=== PATIENT | male | born 1995 | race Hispanic/Latino ===

== ENCOUNTER 2017-08-19 10:55 | Emergency (ER) | payer SELFPAY ==
[2017-08-19 11:57] LABS: #Eosinphils 0.1 thou/uL (0.0-0.7); #Lymphocytes 1.7 thou/uL (1.20-3.40); #Monocytes 0.3 thou/uL (0.11-0.59); #Neutrophils 2.3 thou/uL (1.40-6.50); %Eosinophils 1.2 % (0.0-10.0); %Lymphocytes 38.4 % (28.0-48.0); %Monocytes 7.7 % (0.0-4.0); Hematocrit 46.9 % (42.0-52.0); Mean Platelet Volume 8.6 fL (7.4-10.4); Red Blood Cell (RBC) Count 5.23 mill/uL (4.00-5.20); White Blood Cell (WBC) Count 4.5 thou/uL (4.8-10.8)
[2017-08-19 12:17] LABS: ALT (SGPT) 22 U/L (8-55); AST (SGOT) 18 U/L (5-34); Alkaline Phosphatase 103 U/L (Less than 750); Anion Gap 12 mmol/L (10-20); BUN (Urea Nitrogen) 10 mg/dL (8.9-20.6); Bilirubin, Total 0.6 mg/dL (0.2-1.2); Calc. Creatinine Clearance 0 mL/min (70-130); Calcium 9.2 mg/dL (7.8-10.44); Carbon Dioxide 25 mmol/L (22-29); Chloride 105 mmol/L (98-107); Estimated GFR-MDRD Greater than 90; Globulin 2.6 g/dL (2.4-3.5); Lipase 46 U/L (8-78); Protein, Total 7.1 g/dL (6.0-8.3)
[2017-08-19] MEDS ORDERED: Ondansetron HCl/PF 4 MG/2 ML Vial ONE (12:40)
--- NOTE | 2017-08-19 13:13 | RAD ---
ACUTE ABDOMINAL SERIES: Date: 08/19/17 HISTORY: Abdominal pain and intermittent vomiting for 2 months. FINDINGS: CHEST: Cardiac silhouette and pulmonary vasculature are within normal limits. Lungs are clear. Osseous struc tures are intact. 2 VIEWS ABDOMEN: No free intraperitoneal air is seen beneath the hemidiaphragms. There is a nonspecific bowel gas lucian gilda. No suspicious calcifications are seen. Osseous structures are intact. IMPRESSION: Nonspecific bowel gas pattern. POS: [facility]
== END 2017-08-19 14:33 | disposition home or self-care (01) ==
LOC: ERS 10:55
DX: R11.2 Nausea with vomiting, unspecified (principal); R19.7 Diarrhea, unspecified; F31.9 Bipolar disorder, unspecified
CPT/HCPCS: 36415; 74022; 80053; 83690; 85025; 96361; 96372; 96374; J2405

== ENCOUNTER 2017-10-03 01:31 | Emergency (ER) | payer SELFPAY ==
[2017-10-03] MEDS ORDERED: Acetaminophen 650 MG Suppository ONE (02:42)
[2017-10-03] MEDS ORDERED: Acetaminophen 325 MG TAB ONE (02:43)
== END 2017-10-03 02:48 | disposition home or self-care (01) ==
LOC: ERS 01:31
DX: J11.1 Influenza due to unidentified influenza virus with other respiratory manifestations (principal); F31.9 Bipolar disorder, unspecified
CPT/HCPCS: 87804; 99283

== ENCOUNTER 2022-07-03 16:01 | Inpatient (IN) | payer SELFPAY ==
[2022-07-03 16:39] LABS: #Basophils 0.1 thou/uL (0.0-0.2); #Eosinphils 0.1 thou/uL (0.0-0.7); #Lymphocytes 2.1 thou/uL (1.20-3.40); #Monocytes 0.3 thou/uL (0.11-0.59); #Neutrophils 2.1 thou/uL (1.40-6.50); %Basophils 1.3 % (0.0-1.0); %Eosinophils 1.2 % (0.0-10.0); %Lymphocytes 46.3 % (21.0-51.0); %Monocytes 5.5 % (0.0-10.0); %Neutrophils 45.6 % (42.0-75.0); Hemoglobin 15.1 g/dL (14.0-18.0); Mean Corpuscular HGB CONC 33.5 g/dL (32.0-36.0); Mean Corpuscular Hemoglobin 30.5 pg (27.0-31.0); Mean Corpuscular Volume 91.1 fL (78.0-98.0); Mean Platelet Volume 9.2 fL (7.4-10.4); Platelet Count 194 thou/uL (130-400); RBC Distribution Width 12.3 % (11.5-14.5); Red Blood Cell (RBC) Count 4.94 mill/uL (4.70-6.10); White Blood Cell (WBC) Count 4.6 thou/uL (4.8-10.8)
[2022-07-03 16:48] LABS: Actual Bicarbonate (HCO3v) 22 mEq/L (22-28); Analyzer IN Cardio ER; Chloride (VBG) 104 mmol/L (98-106); Hemoglobin (Hb) 15.8 g/dL (13.2-17.3); Potassium (VBG) 3.88 mmol/L (3.70-5.30); Sodium 136.3 mmol/L (133-146); pH (venous) 7.37 (7.32-7.43)
[2022-07-03 17:05] LABS: Lactic Acid 1.9 mmol/L (0.5-2.2)
[2022-07-03 17:10] LABS: ALT (SGPT) 23 U/L (8-55); AST (SGOT) 27 U/L (5-34); Acetaminophen Less than 10.0 mcg/mL (10.0-30.0); Albumin 4.1 g/dL (3.5-5.0); Alcohol 127 mg/dL (Less than 10); Alkaline Phosphatase 87 U/L (40-110); Anion Gap 12 mmol/L (10-20); BUN (Urea Nitrogen) 6 mg/dL (8.9-20.6); Bilirubin, Total 0.5 mg/dL (0.2-1.2); Calc. Creatinine Clearance 0 mL/min (70-130); Calcium 8.5 mg/dL (7.8-10.44); Carbon Dioxide 23 mmol/L (22-29); Chloride 106 mmol/L (98-107); Estimated GFR 129; Globulin 2.2 g/dL (2.4-3.5); Glucose 109 mg/dL (70-105); Potassium 3.9 mmol/L (3.5-5.1); Protein, Total 6.3 g/dL (6.0-8.3); Salicylate Less than 8.0 mg/dL (15.0-30.0); Sodium 137 mmol/L (136-145)
[2022-07-03 17:26] LABS: Bacteria/HPF None Seen HPF (None Seen); Bilirubin Negative (Negative); Blood, Urine Negative (Negative); Clarity Clear (Clear); Glucose, Urine (Dipstick) Normal (Negative); Ketone, Urine Negative (Negative); Leukocyte Negative Leu/uL (Negative); Nitrite Negative (Negative); Protein, Urine (Dipstick) Negative (Neg-Trace); RBC/HPF None Seen HPF (0-3); Specific Gravity, Urine 1.004 (1.002-1.036); Squamous Epithelial None Seen HPF (0-3); Urobilinogen Normal mg/dL (Less than 2); WBC/HPF None Seen HPF (0-3); pH, Urine 5.5 (5.0-9.0)
[2022-07-03 17:35] LABS: Amphetamine Not Detected (NotDetected); Barbiturates Screen Not Detected (NotDetected); Benzodiazepine Screen Detected (NotDetected); Cocaine Metabolite Screen Not Detected (NotDetected); Methadone Not Detected (NotDetected); Methamphetamine Not Detected (NotDetected); Opiate Screen Not Detected (NotDetected); Oxycodone Screen Not Detected (NotDetected); Phencyclidine (PCP) Not Detected (NotDetected); THC/Cannabinoid Screen Detected (NotDetected); Tricyclic Screen Not Detected (NotDetected)
[2022-07-03] MEDS ORDERED: Naloxone HCl 0.4 mg/ml Vial ONE (18:07)
[2022-07-03] MEDS ORDERED: NOREPINEPHRINE 8 MG/250 ML-D5W 250 ML ONE (19:10)
[2022-07-03 20:23] LABS: SARS-CoV-2 NAA Rapid Test Not Detected (NotDetected)
[2022-07-03] MEDS ORDERED: Acetaminophen 325 MG TAB PO PRN (20:25)
[2022-07-03] MEDS ORDERED: Multivitamins, Adult 10 ML, Folic Acid 1 MG, Thiamine HCl 100 MG in Dextrose 5 %-0.45 %... IV SCH (20:30)
[2022-07-03] MEDS ORDERED: NOREPINEPHRINE 8 MG/250 ML-D5W 250 ML IVPB SCH (21:00)
[2022-07-03] MEDS: Sodium Chloride 0.9% 1,000 ML IV SCH (21:46)
[2022-07-03] MEDS: Famotidine 20 MG TAB PO SCH (21:58)
[2022-07-03] MEDS ORDERED: Sterile Water 10 ML VIAL FS PRN (23:45)
[2022-07-03] MEDS ORDERED: Ziprasidone 20 MG VIAL IM SCH (23:59)
[2022-07-04 05:03] VITALS: BMI 22.8
[2022-07-04] MEDS: Sodium Chloride 0.9% 1,000 ML IV SCH ×5 (05:59→21:04)
[2022-07-04 08:07] LABS: #Eosinphils 0.1 thou/uL (0.0-0.7); #Monocytes 0.5 thou/uL (0.11-0.59); #Neutrophils 2.7 thou/uL (1.40-6.50); %Basophils 0.6 % (0.0-1.0); %Eosinophils 2.7 % (0.0-10.0); %Lymphocytes 37.2 % (21.0-51.0); %Monocytes 8.5 % (0.0-10.0); %Neutrophils 51.1 % (42.0-75.0); Hemoglobin 14.1 g/dL (14.0-18.0); Mean Corpuscular HGB CONC 32.9 g/dL (32.0-36.0); Mean Corpuscular Hemoglobin 30.7 pg (27.0-31.0); Mean Corpuscular Volume 93.1 fL (78.0-98.0); Platelet Count 168 thou/uL (130-400); RBC Distribution Width 12.1 % (11.5-14.5); Red Blood Cell (RBC) Count 4.61 mill/uL (4.70-6.10); White Blood Cell (WBC) Count 5.3 thou/uL (4.8-10.8)
[2022-07-04 08:21] LABS: ALT (SGPT) 17 U/L (8-55); AST (SGOT) 17 U/L (5-34); Albumin 3.3 g/dL (3.5-5.0); Alkaline Phosphatase 69 U/L (40-110); Anion Gap 7 mmol/L (10-20); BUN (Urea Nitrogen) 4 mg/dL (8.9-20.6); Bilirubin, Total 0.6 mg/dL (0.2-1.2); Calc. Creatinine Clearance 146 mL/min (70-130); Carbon Dioxide 26 mmol/L (22-29); Chloride 113 mmol/L (98-107); Estimated GFR 131; Globulin 1.7 g/dL (2.4-3.5); Glucose 101 mg/dL (70-105); Magnesium 1.8 mg/dL (1.6-2.6); Potassium 4.1 mmol/L (3.5-5.1); Sodium 142 mmol/L (136-145)
[2022-07-04] MEDS ORDERED: FLU VACC QS2022-23(6MOS UP)/PF 60 MCG/0.5 ML SYRINGE IM ONE (09:00)
[2022-07-04] MEDS: Enoxaparin Sodium 40 MG/0.4 ML SYRINGE SC SCH (09:03)
[2022-07-04] MEDS: Multivitamin W/ Minerals 1 TAB PO SCH (09:04)
[2022-07-04] MEDS: Folic Acid 1 MG TAB PO SCH (09:04)
[2022-07-04] MEDS: Thiamine 100 MG TAB PO SCH (09:04)
[2022-07-04] MEDS: Famotidine 20 MG TAB PO SCH ×2 (09:04→21:04)
[2022-07-05] MEDS: Sodium Chloride 0.9% 1,000 ML IV SCH ×4 (05:25→23:40)
[2022-07-05] MEDS: Enoxaparin Sodium 40 MG/0.4 ML SYRINGE SC SCH (08:42)
[2022-07-05] MEDS: Multivitamin W/ Minerals 1 TAB PO SCH (08:42)
[2022-07-05] MEDS: Thiamine 100 MG TAB PO SCH (08:43)
[2022-07-05] MEDS: Famotidine 20 MG TAB PO SCH ×2 (08:43→21:12)
[2022-07-05] MEDS: Folic Acid 1 MG TAB PO SCH (08:43)
[2022-07-05 08:44] LABS: #Basophils 0.1 thou/uL (0.0-0.2); #Eosinphils 0.1 thou/uL (0.0-0.7); #Lymphocytes 2.1 thou/uL (1.20-3.40); #Monocytes 0.3 thou/uL (0.11-0.59); #Neutrophils 2.8 thou/uL (1.40-6.50); %Basophils 1.4 % (0.0-1.0); %Eosinophils 1.4 % (0.0-10.0); %Lymphocytes 39.5 % (21.0-51.0); %Monocytes 5.8 % (0.0-10.0); %Neutrophils 51.9 % (42.0-75.0); Hemoglobin 14.9 g/dL (14.0-18.0); Mean Corpuscular HGB CONC 33.3 g/dL (32.0-36.0); Mean Corpuscular Hemoglobin 30.7 pg (27.0-31.0); Mean Platelet Volume 9.4 fL (7.4-10.4); Platelet Count 184 thou/uL (130-400); Red Blood Cell (RBC) Count 4.85 mill/uL (4.70-6.10); White Blood Cell (WBC) Count 5.4 thou/uL (4.8-10.8)
[2022-07-05 09:01] LABS: ALT (SGPT) 19 U/L (8-55); AST (SGOT) 20 U/L (5-34); Albumin 4.1 g/dL (3.5-5.0); Alkaline Phosphatase 85 U/L (40-110); Anion Gap 7 mmol/L (10-20); BUN (Urea Nitrogen) 6 mg/dL (8.9-20.6); Bilirubin, Total 0.7 mg/dL (0.2-1.2); Calc. Creatinine Clearance 132 mL/min (70-130); Calcium 8.7 mg/dL (7.8-10.44); Carbon Dioxide 30 mmol/L (22-29); Chloride 105 mmol/L (98-107); Estimated GFR 127; Globulin 2.3 g/dL (2.4-3.5); Glucose 113 mg/dL (70-105); Magnesium 1.9 mg/dL (1.6-2.6); Potassium 3.9 mmol/L (3.5-5.1); Protein, Total 6.4 g/dL (6.0-8.3); Sodium 138 mmol/L (136-145)
[2022-07-06] MEDS: Sodium Chloride 0.9% 1,000 ML IV SCH ×3 (04:59→17:34)
[2022-07-06] MEDS: Multivitamin W/ Minerals 1 TAB PO SCH (08:57)
[2022-07-06] MEDS: Thiamine 100 MG TAB PO SCH (08:57)
[2022-07-06] MEDS: Enoxaparin Sodium 40 MG/0.4 ML SYRINGE SC SCH ×2 (08:57→09:00)
[2022-07-06] MEDS: Folic Acid 1 MG TAB PO SCH (08:57)
[2022-07-06] MEDS: Famotidine 20 MG TAB PO SCH (08:57)
[2022-07-06 09:22] VITALS: TEMP 98.4
[2022-07-06 12:21] VITALS: BP 132/68
== END 2022-07-06 18:01 | DRG 917 ==
LOC: ERS 16:01 → CCU 20:28 → T4-A 07-04 10:37
PROVIDERS: ADMIT Internal Medicine; ATTEND Internal Medicine
PROC: 3E033XZ Introduction of Vasopressor into Peripheral Vein, Percutaneous Approach (ICD-10-PCS; principal; 2022-07-03)
DX: T42.4X2A Poisoning by benzodiazepines, intentional self-harm, initial encounter (principal); G92.8 Other toxic encephalopathy; T78.2XXA Anaphylactic shock, unspecified, initial encounter; Z20.822 Contact with and (suspected) exposure to COVID-19; F31.9 Bipolar disorder, unspecified; F10.10 Alcohol abuse, uncomplicated; Z78.1 Physical restraint status; Z28.21 Immunization not carried out because of patient refusal; Z88.1 Allergy status to other antibiotic agents
CPT/HCPCS: 36415; 51701; 80053; 80306; 80307; 81001; 82805; 83605; 83735; 85025; 93005; 96361; 96374; 96375; J1650; J2310; J3411; J3486; J7042; J7050; U0002

== ENCOUNTER 2024-07-05 01:59 | Emergency (ER) | payer BC, SELFPAY ==
[2024-07-05 02:21] LABS: #Basophils 0.03 10x3/uL (0.0-0.2); #Eosinophils Less than 0.03 10x3/uL (0.0-0.7); %Basophils 0.4 % (0.0-1.0); %Eosinophils 0.1 % (0.0-10.0); %Lymphocytes 22.9 % (21.0-51.0); %Monocytes 6.7 % (0.0-10.0); %Neutrophils 69.8 % (42.0-75.0); Hematocrit 45.2 % (42.0-52.0); Hemoglobin 15.8 g/dL (14.0-18.0); Mean Corpuscular Hemoglobin 29.9 pg (27.0-31.0); Mean Corpuscular Volume 85.6 fL (78.0-98.0); Platelet Count 227 10x3/uL (130-400); RBC Distribution Width 12.4 % (11.5-14.5); Red Blood Cell (RBC) Count 5.28 mill/uL (4.70-6.10)
[2024-07-05 02:42] LABS: ALT (SGPT) 23 U/L (8-55); AST (SGOT) 31 U/L (5-34); Acetaminophen Less than 10 mcg/mL (Less than 10); Albumin 4.5 g/dL (3.5-5.0); Alcohol 220.6 mg/dL (Less than 10); Alkaline Phosphatase 105 U/L (40-110); Anion Gap 16 mmol/L (10-20); BUN (Urea Nitrogen) 12 mg/dL (8.9-20.6); Bilirubin, Total 0.3 mg/dL (0.2-1.2); Calc. Creatinine Clearance 0 mL/min (70-130); Calcium 8.8 mg/dL (7.8-10.44); Carbon Dioxide 21 mmol/L (22-29); Chloride 111 mmol/L (98-107); Estimated GFR 123; Globulin 2.8 g/dL (2.4-3.5); Glucose 101 mg/dL (70-105); Potassium 3.5 mmol/L (3.5-5.1); Protein, Total 7.3 g/dL (6.0-8.3); Salicylate Less than 8.0 mg/dL (Less than 8.0); Sodium 144 mmol/L (136-145)
== END 2024-07-05 05:12 | disposition home or self-care (01) ==
LOC: ERS 01:59 → EEVIPCON 01:59 → ERS 05:12
DX: S02.40CA Maxillary fracture, right side, initial encounter for closed fracture (principal); S02.5XXA Fracture of tooth (traumatic), initial encounter for closed fracture; Z87.891 Personal history of nicotine dependence; Y08.09XA Assault by strike by other specified type of sport equipment, initial encounter
CPT/HCPCS: 70450; 70486; 80053; 80307; 85025